=== PATIENT | male | born 1985 | race Caucasian/White ===

== ENCOUNTER 2022-02-01 13:28 | Emergency (ER) | payer OTHER, SELFPAY ==
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
[2022-02-01 13:36] VITALS: BP 164/99; PULSE 101; RESP 16; TEMP 36.9; O2SAT 100
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
[2022-02-01 15:21] VITALS: BP 155/99; PULSE 91; RESP 18; TEMP 36.6; O2SAT 99
== END 2022-02-01 15:21 | disposition home or self-care (01) ==
PROVIDERS: Emergency Provider Emergency Medicine
DX: S16.1XXA Strain of muscle, fascia and tendon at neck level, initial encounter (principal); S09.22XA Traumatic rupture of left ear drum, initial encounter; M47.812 Spondylosis without myelopathy or radiculopathy, cervical region; V49.40XA Driver injured in collision with unspecified motor vehicles in traffic accident, initial encounter
CPT/HCPCS: 70450; 71046; 72125; 99284